=== PATIENT | female | born 1960 | race Caucasian/White ===

== ENCOUNTER 2020-03-07 18:37 | Emergency (ER) | payer OTHER ==
[~2020-03-07] VITALS: Ht 162.6 cm; Wt 53.1 kg
[2020-03-07 19:50] LABS: URINE BILIRUBIN NEGATIVE (Negative); URINE BLOOD TRACE (Negative); URINE CLARITY CLEAR; URINE COLOR YELLOW; URINE GLUCOSE-RANDOM* NEGATIVE (Negative); URINE KETONES 1+ (Negative); URINE LEUKOCYTES-REFLEX NEGATIVE (Negative); URINE NITRITE-REFLEX NEGATIVE (Negative); URINE PROTEIN (DIPSTICK) NEGATIVE (Negative); URINE UROBILINOGEN 0.2 E.U./dl (0.2-1.0)
[2020-03-07 19:52] LABS: MCH 34.7 pg (26.0-34.0); MCHC 34.3 g/dL (28.0-37.0); MCV 101.2 fL (80.0-100.0); PLATELET COUNT 189 thou/uL (150-400); RBC 3.76 mil/uL (4.20-5.00); RDW 15.7 % (10.5-14.5); WBC 4.7 thou/uL (4.0-11.0)
[2020-03-07 20:00] LABS: ANION GAP 16 mmol/L (7-16); BUN 11 mg/dL (7-18); CALCIUM 8.2 mg/dL (8.5-10.1); CHLORIDE 102 mmol/L (98-107); CO2 24 mmol/L (21-32); CREATININE 0.7 mg/dL (0.6-1.0); GLUCOSE 143 mg/dL (74-106); POTASSIUM 3.1 mmol/L (3.5-5.1); SODIUM 142 mmol/L (136-145)
[2020-03-07 20:10] LABS: ALBUMIN 4.6 g/dL (3.4-5.0); SGOT 145 U/L (15-37); SGPT 192 U/L (30-65); TOTAL BILIRUBIN 0.2 mg/dL (0.2-1.0); TOTAL PROTEIN 7.4 g/dL (6.4-8.2); TROPONIN-I <0.06 ng/mL (<0.06)
[2020-03-07 20:22] LABS: ABSOLUTE NEUTROPHILS 2.2 thou/uL (1.4-8.2); ANISOCYTOSIS 1+; MACROCYTES 1+
[2020-03-07 20:23] LABS: LARGE PLATELETS RARE; POLYCHROMASIA OCCASIONAL
[2020-03-07] MEDS ORDERED: POTASSIUM20 PO (21:21)
[2020-03-07 21:40] VITALS: BP 122/85
--- NOTE | 2020-03-09 08:13 | EKG ---
[facility] [place] [address] ELECTROCARDIOGRAM REPORT Name: MICKEY BENITES Room #: DEP [facility]#: [id number] Admission: 03/07/20 Attend Phys: Discharge: 03/07/20 Date of : 56 Report #: [id number] THIS REPORT FOR: cc: Christine Schaffer, Chirstine Katz, Naeem Leal MD [facility] ~ THIS REPORT FOR: //name// [facility] ED Test Date: 2020-03-07 Test Time: 19:52:06 Pat Name: MICKEY BENITES Department: Room: Gender: F Final Inspector Paper: ALFONSO : 1960 Requested By: Epifanio Melendez Order Number: [id number] MD: Naeem Magaña Measurements Intervals [place] Rate: 90 P: 49 TX: 138 QRS: -7 QRSD: 101 T: 28 QT: 368 QTc: 451 Interpretive Statements Sinus rhythm RSR' in V1 or V2, right VCD or RVH No previous ECG available for comparison Electronically Signed On 03-09-2020 8:12:52 CDT by Naeem Magaña [email or web address] <ELECTRONICALLY SIGNED> By: Naeem Magaña MD, FAC 03/09/20811 51 51 Naeem Magaña MD, [facility] /EPI
== END 2020-03-07 21:41 | disposition home or self-care (01) ==
LOC: ER 18:37
PROVIDERS: Nurse Practitioner
DX: E87.6 Hypokalemia (principal); F10.10 Alcohol abuse, uncomplicated; R51 Headache; F17.210 Nicotine dependence, cigarettes, uncomplicated; Z88.2 Allergy status to sulfonamides; Y90.9 Presence of alcohol in blood, level not specified

== ENCOUNTER 2020-07-04 21:45 | Emergency (ER) | payer OTHER ==
[~2020-07-04] VITALS: Ht 160 cm; Wt 53.5 kg
[~2020-07-04 21:45] MED LIST: POTASSIUM20 PO
[2020-07-04 22:34] VITALS: BP 105/75
== END 2020-07-04 22:35 | disposition home or self-care (01) ==
LOC: ER 21:45
DX: I73.9 Peripheral vascular disease, unspecified (principal); F17.200 Nicotine dependence, unspecified, uncomplicated; F17.210 Nicotine dependence, cigarettes, uncomplicated; Z88.2 Allergy status to sulfonamides; Z79.899 Other long term (current) drug therapy

== ENCOUNTER 2020-07-16 09:17 | Emergency (ER) | payer OTHER ==
[~2020-07-16] VITALS: Ht 160 cm; Wt 53.5 kg
[2020-07-16 09:54] LABS: CALCIUM 8.4 mg/dL (8.5-10.1); CREATININE 0.8 mg/dL (0.6-1.0)
[2020-07-16 09:59] LABS: POTASSIUM 2.9 mmol/L (3.5-5.1)
[2020-07-16 12:45] VITALS: BP 119/78
== END 2020-07-16 12:47 | disposition home or self-care (01) ==
LOC: ER 09:17
PROVIDERS: Emergency Medicine
DX: S80.12XA Contusion of left lower leg, initial encounter (principal); S80.11XA Contusion of right lower leg, initial encounter; E86.0 Dehydration; I10 Essential (primary) hypertension; F17.210 Nicotine dependence, cigarettes, uncomplicated; Z88.2 Allergy status to sulfonamides; X58.XXXA Exposure to other specified factors, initial encounter; Y93.89 Activity, other specified; Y92.89 Other specified places as the place of occurrence of the external cause; Y99.8 Other external cause status

== ENCOUNTER 2020-12-05 15:16 | Inpatient (IN) | payer OTHER ==
[~2020-12-05] VITALS: Ht 162.6 cm; Wt 59.9 kg
[2020-12-05 15:17] VITALS: BP 138/98
[2020-12-05] MEDS ORDERED: BUSPIRONE HCL10 MG PO (15:27)
[2020-12-05] MEDS ORDERED: PROTONIX40 M2 PO (15:27)
[2020-12-05] MEDS ORDERED: OLMESARTAN MEDO20 MG (15:28)
[2020-12-05] MEDS ORDERED: K-DUR 20 MEQ T20 MEQ PO (15:29)
[2020-12-05] MEDS ORDERED: FOLIC ACID1 MG PO (15:29)
[2020-12-05 16:03] LABS: ABSOLUTE NEUTROPHILS 5.1 thou/uL (1.4-8.2); BASOPHILS 0.2 % (0.0-2.0); EOSINOPHILS 0.1 % (0.0-3.0); HEMATOCRIT 34.8 % (37.0-47.0); HEMOGLOBIN 11.9 gm/dL (12.0-15.0); LYMPHOCYTES 4.7 % (24.0-44.0); MCH 32.3 pg (26.0-34.0); MCHC 34.1 g/dL (28.0-37.0); MCV 94.6 fL (80.0-100.0); PLATELET COUNT 133 thou/uL (150-400); RBC 3.68 mil/uL (4.20-5.00); RDW 20.3 % (10.5-14.5); URINE BILIRUBIN 1+ (Negative); URINE BLOOD 2+ (Negative); URINE CLARITY CLEAR; URINE COLOR YELLOW; URINE GLUCOSE-RANDOM* NEGATIVE (Negative); URINE KETONES 3+ (Negative); URINE LEUKOCYTES-REFLEX NEGATIVE (Negative); URINE NITRITE-REFLEX NEGATIVE (Negative); URINE PROTEIN (DIPSTICK) 2+ (Negative); URINE SPECIFIC GRAVITY >= 1.030 (1.005-1.035); WBC 5.8 thou/uL (4.0-11.0)
[2020-12-05 16:17] LABS: CALCIUM 10.1 mg/dL (8.5-10.1); CREATININE 0.8 mg/dL (0.6-1.0); POTASSIUM 4.1 mmol/L (3.5-5.1)
[2020-12-05 16:18] LABS: ICTOTEST (BILI CONFIRMATORY) Positive (Negative)
[2020-12-05 16:23] LABS: ALBUMIN 4.2 g/dL (3.4-5.0); MAGNESIUM 1.4 mg/dL (1.8-2.4); PHOSPHORUS 2.3 mg/dL (2.5-4.9); TOTAL PROTEIN 7.3 g/dL (6.4-8.2)
[2020-12-05 16:26] LABS: MUCUS >6 Heavy strn/LPF (None Seen)
[2020-12-05 16:27] LABS: BACTERIA-REFLEX None Seen /HPF (None Seen); CRYSTALS None Seen /LPF (None Seen); HYALINE CASTS 0-3 Few /LPF (None Seen); SQUAMOUS 0-3 Few /LPF (0-3); TRANSITIONAL EPITHEL CELL 4-10 Moderate /LPF (None Seen); URINE RBC 3-10 Few /HPF (NONE SEEN); URINE WBC-REFLEX None Seen /HPF (0-5)
[2020-12-05 16:28] LABS: RENAL EPITHELIAL CELLS 0-3 Few /LPF (None Seen)
[2020-12-05 16:30] LABS: ANISOCYTOSIS 2+
[2020-12-05 22:27] VITALS: BP 121/89
[2020-12-05 22:56] VITALS: BP 121/84
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
[2020-12-06 03:34] VITALS: BP 137/92
[2020-12-06 04:48] LABS: CALCIUM 8.2 mg/dL (8.5-10.1); CREATININE 0.5 mg/dL (0.6-1.0); MAGNESIUM 1.6 mg/dL (1.8-2.4); POTASSIUM 3.3 mmol/L (3.5-5.1)
[2020-12-06 07:44] VITALS: BP 132/97
[2020-12-06 11:09] VITALS: BP 130/94
--- NOTE | 2020-12-06 13:04 | NUR ---
CARE ASSUMED THIS AM, PT ALERT AND ORIENTED X4, COMPLAINS OF SOME NAUSEA AND BUT FEELS BETTER NOW AFTER SOME ICE CHIPS. ON ROOM AIR, NO SIGNS OF DISTRESS NOTED. FREQUEST ASSESSMENT FOR ETOH WITHDRAWAL. SEIZURE AND FALL PRECAUTIONS IN PLACE. UP TO BSC WITH 1 ASSIST DUE TO WEAKNESS AND TREMORS. DENIES ANY NEEDS AT MOMENT. WILL CONTINUE TO MONITOR
[2020-12-06 15:23] VITALS: BP 123/96
[2020-12-06 19:30] VITALS: BP 128/93
--- NOTE | 2020-12-06 22:28 | NUR ---
PT ALERT AND ORIENED X4. VSS AFEBRILE. SR ON MONITOR PRESENTLY. UNLABORED ON RA. DENIED MARINELLI OR ANY PAIN TONIGHT. REINFORCED FALL PRECAUTIONS AND CALL LIGHT USE. NO TREMORS NOTED PRESENTLY. PT IS IMPROVED TONIGHT . LESS ANXIOUS. NO N/V. NO ABD PAIN. NO S/S DISTRESS. WILL CONTINUE TO MONITOR PT FOR CHANGES. BED DOWN CALL LIGHT IN REACH. SIDE RAILS PADDED FOR SZ PRECAUTIONS. BED ALARM IS ON.
[2020-12-07 02:05] LABS: GLYCOHEMOGLOBIN (HGB A1C) 5.2 % (4.8-5.6)
[2020-12-07 03:41] VITALS: BP 146/87
--- NOTE | 2020-12-07 04:03 | NUR ---
PT MILDLY AGITATED AND ANXIOUS. MEDICATED FOR ANXIETY AND LE PAIN/ BACK PAIN. TYLENOL AND CHLORDIAZEPOXIDE GIVEN. REINFORCED FALL PRECAUTIONS.
[2020-12-07 05:13] LABS: ABSOLUTE NEUTROPHILS 1.2 thou/uL (1.4-8.2); BASOPHILS 2.2 % (0.0-2.0); HEMATOCRIT 30.4 % (37.0-47.0); HEMOGLOBIN 10.4 gm/dL (12.0-15.0); LYMPHOCYTES 26.7 % (24.0-44.0); MCH 32.9 pg (26.0-34.0); MCHC 34.1 g/dL (28.0-37.0); MCV 96.4 fL (80.0-100.0); PLATELET COUNT 66 thou/uL (150-400); POLYS 57.1 % (36.0-66.0); RBC 3.15 mil/uL (4.20-5.00); RDW 18.6 % (10.5-14.5); WBC 2.2 thou/uL (4.0-11.0)
[2020-12-07 05:31] LABS: ALBUMIN 3.3 g/dL (3.4-5.0); CALCIUM 7.9 mg/dL (8.5-10.1); CREATININE 0.4 mg/dL (0.6-1.0); DIRECT BILIRUBIN 0.2 mg/dL (<0.1-0.2); MAGNESIUM 1.5 mg/dL (1.8-2.4); PHOSPHORUS 1.3 mg/dL (2.6-4.7); POTASSIUM 3.4 mmol/L (3.5-5.1); TOTAL BILIRUBIN 0.5 mg/dL (0.2-1.0); TOTAL PROTEIN 6.1 g/dL (6.4-8.2)
--- NOTE | 2020-12-07 06:16 | NUR ---
PT PROGRESSING SLOWLY TOWARDS D/C GOALS. VSS. SATS WNL CIWA 4. NO S/S DISTRESS PRESENTLY.
[2020-12-07 07:01] VITALS: BP 134/99
[2020-12-07 09:19] VITALS: BP 148/107
[2020-12-07 15:15] VITALS: BP 145/98
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
--- NOTE | 2020-12-07 17:19 | NUR ---
PT ALERT AND ORIENTED TIMES THREE WITH PERIODS OF CONFUSION. VSS, SR ON TELE, IVF INFUSIN PER ORDER. PT C/O PAIN PRN PAIN MEDICATIONS GIVEN WITH GOOD RELEIF. PT UP TO BSC WITH ASSIST OF ONE. PT TOLERATES MEDS AND MEALS. WILL CONINUE TO MONITOR.
[2020-12-07 20:21] VITALS: BP 144/105
[2020-12-08 00:42] VITALS: BP 137/102
[2020-12-08 04:43] VITALS: BP 153/112
[2020-12-08 05:46] LABS: HEMOGLOBIN 10.6 gm/dL (12.0-15.0); MCH 33.3 pg (26.0-34.0); MCHC 34.2 g/dL (28.0-37.0); MCV 97.2 fL (80.0-100.0); RBC 3.19 mil/uL (4.20-5.00); RDW 19.1 % (10.5-14.5); WBC 2.6 thou/uL (4.0-11.0)
[2020-12-08 05:55] LABS: CALCIUM 8.1 mg/dL (8.5-10.1); CREATININE 0.5 mg/dL (0.6-1.0); POTASSIUM 3.4 mmol/L (3.5-5.1)
--- NOTE | 2020-12-08 06:11 | NUR ---
NO SIGNIFICANT EVENTS DURING THE NIGHT. PT SLEPT MOST OF THE NIGHT. SHE CALLED OUT APPROPRIATELY FOR ASSISTANCE TO THE BSC. GOOD URINE OUTPUT. UNABLE TO GET STOOL SAMPLE, HER BM WAS CONTAMINATED WITH URINE. PRN LORAZEPAM GIVEN PER [facility] SCORE FOR ETOH WITHDRAWAL. PT CONTINUES TO HAVE MILD TREMORS AND SOME ANXIETY. SHE DENIES ANY MORE N/V. SEIZURE PRECAUTIONS IN PLACE. FALL PRECAUTIONS IN PLACE. PROGRESSING SLOWLY TOWARD POC GOALS. WILL GIVE REPORT TO ONCOMING NURSE.
[2020-12-08 07:27] VITALS: BP 136/101
--- NOTE | 2020-12-08 14:00 | NUR ---
RHODA reviewed chart and spoke with nursing and attending physician. Pt is slowly progressing towards goals for discharge. RHODA met with pt at bedside. Discussed discharge disposition: post acute placement v. home with HH. Pt states she wants to go home, as her son will be at home and can assist as needed. RHODA asked pt [facility] Pt states that he will be home when she gets there. RHODA offered to arrange HH for pt. Pt declines stating that if she needs HH after discharge, she will call. RHODA instructed pt to contact her PCP after discharge if she wants HH. Pt will need a walker and states she does not have one or has had one in the past. Options for DME companies provided. No preference voiced. RHODA faxed face sheet to [employer] for review. [facility] accept pt's insurance for DME. RHODA updated attending physician. RHODA is following to assist as needed with discharge planning.
[2020-12-08 15:24] VITALS: BP 136/101
--- NOTE | 2020-12-08 15:25 | NUR ---
DISCONTINUE IV AND TELE. PT WILL BE DISCHAGRED TO HOME VIA PRIVATE VEHICLE AND WITH A SCRIPT FOR A WALKER.
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
== END 2020-12-08 16:51 | disposition home or self-care (01) | DRG 897 ==
LOC: ER 15:16 → EROBS 21:14 → 3W 21:14 → ICU 22:23 → 3W 22:41
PROVIDERS: Emergency Medicine; Hospitalist; Internal Medicine; Nurse Practitioner Family; ADMIT Hospitalist; ATTEND Hospitalist
DX: F10.239 Alcohol dependence with withdrawal, unspecified (principal); E87.2 Acidosis; I10 Essential (primary) hypertension; R73.03 Prediabetes; D69.6 Thrombocytopenia, unspecified; K27.9 Peptic ulcer, site unspecified, unspecified as acute or chronic, without hemorrhage or perforation; Y90.9 Presence of alcohol in blood, level not specified; Z88.2 Allergy status to sulfonamides; Z79.899 Other long term (current) drug therapy
CPT/HCPCS: 10879

== ENCOUNTER 2021-04-10 20:17 | Emergency (ER) | payer OTHER ==
[~2021-04-10] VITALS: Ht 160 cm; Wt 49.9 kg
--- NOTE | ~2021-04-10 | EMS ---
[place] [address] EMS Patient Care Report Name: MICKEY BENITES Room #: REG ELIZA [facility]#: [id number] Admission: 04/10/21 Attend Phys: Discharge: Date of : 56 Report #: [id number] THIS REPORT FOR: //name// Report Transmitted: 04/10/2021 19:54 EMS Care Summary [place], [place]/[facility] Incident [id number] @ 04/10/2021 19:39 Incident Location [address] [place] [address] Patient MICKEY BENITES Female, 61 Years 1960 Patient Address [address] [place] [address] Patient History Alcohol Abuse,Back Pain (Chronic), Patient Allergies Sulfa, Chief Complaint chronic back pain Disposition Transported No Lights/[place] Dispatch Reason Sick Person Transported To [facility] Narrative pt found seated in living room chair, a&o, intoxicated. pt states she has been drinking today and also took edibles @ 1700. she is req transport to [facility] for help w/ her alcoholism and to also be seen for her chronic low back pain. pt ambulatory w/ assist to unit, secured to cot, transport w/o incident. pt to triage, [place] [address] EMS Patient Care Report Name: MICKEY BENITES Room #: REG ELIZA [facility]#: [id number] Admission: 04/10/21 Attend Phys: Discharge: Date of : 56 Report #: [id number] Initial Vitals @20:03P: 110,R: 18,BP: 122/83,Pain: 8/10,GCS: 15,Glucose: 126,SpO2: 96,Revised Trauma: 12, Assessments @19:56MENTAL:No Abnormalities,SKIN:No Abnormalities,HEENT:Head/Face: No Abnormalities,LUNG SOUNDS:ABDOMEN:PELVIS//GI:EXTREMITIES:PULSE:Radial: 2+ Normal,NEURO:Abnormal Gait,Slurred Speech, Impression Overdose - Alcohol Procedures @19:56 ALS Assessment Response: Unchanged @20:00 Stretcher Response: Unchanged Timeline 19:36,Call Received 19:36,Dispatch Notified 19:39,Dispatched 19:39,En Route 19:55,On Scene 19:56,At Patient 19:56,ALS Assessment,Response: Unchanged 20:00,Stretcher,Response: Unchanged 20:03,BP: 122/83 M,PULSE: 110,RR: 18 R,SPO2: 96 Ox,ETCO2: ,B,PAIN: 8,GCS: 15, 20:05,Depart Scene 20:18,At Destination 20:27,Call Closed Disclaimer v1.1 Copyright 2020 [employer] This EMS Care Summary contains data elements from the applicable legal record (which may be displayed differently). It is designed to provide pertinent information for the following purposes: continuity of care, clinical quality, and state data reporting. The complete legal record is available to ED staff and administrators of the receiving hospital in [facility]'s Patient Tracker. All data is provided "as is."
[~2021-04-10 20:17] MED LIST changes: +BUSPIRONE HCL10 MG PO; +FOLIC ACID1 MG PO; +K-DUR 20 MEQ T20 MEQ PO; +OLMESARTAN MEDO20 MG; +PROTONIX40 M2 PO
[2021-04-10 20:20] VITALS: BP 112/84
[2021-04-10 21:14] LABS: URINE BILIRUBIN NEGATIVE (Negative); URINE BLOOD TRACE (Negative); URINE CLARITY CLEAR; URINE COLOR YELLOW; URINE GLUCOSE-RANDOM* NEGATIVE (Negative); URINE KETONES 2+ (Negative); URINE LEUKOCYTES-REFLEX TRACE (Negative); URINE PROTEIN (DIPSTICK) 1+ (Negative); URINE UROBILINOGEN 0.2 E.U./dl (0.2-1.0)
[2021-04-10 21:16] LABS: URINE NITRITE-REFLEX POSITIVE (Negative)
[2021-04-10 21:27] LABS: SQUAMOUS >10 Many /LPF (0-3)
[2021-04-10 21:28] LABS: BACTERIA-REFLEX >30 Many /HPF (None Seen); CASTS None Seen /LPF (None Seen); CRYSTALS None Seen /LPF (None Seen); URINE RBC 1-2 Rare /HPF (NONE SEEN); URINE WBC-REFLEX 6-15 Few /HPF (0-5)
== END 2021-04-10 21:20 | disposition left against medical advice (07) ==
LOC: ER 20:17
PROVIDERS: Nurse Practitioner Family
DX: F10.10 Alcohol abuse, uncomplicated (principal); I10 Essential (primary) hypertension; F12.90 Cannabis use, unspecified, uncomplicated; F32.9 Major depressive disorder, single episode, unspecified; F41.9 Anxiety disorder, unspecified; F17.210 Nicotine dependence, cigarettes, uncomplicated; Z79.891 Long term (current) use of opiate analgesic; Z79.899 Other long term (current) drug therapy; Z88.2 Allergy status to sulfonamides

== ENCOUNTER 2021-06-04 12:54 | Emergency (ER) | payer OTHER ==
[~2021-06-04] VITALS: Ht 160 cm; Wt 54.4 kg
--- NOTE | ~2021-06-04 | EMS ---
[place] [address] EMS Patient Care Report Name: MICKEY BENITES Room #: DEP ELIZA [facility]att#: [id number] Admission: 06/04/21 Attend Phys: Discharge: 06/04/21 Date of : 56 Report #: [id number] THIS REPORT FOR: //name// Report Transmitted: 06/07/2021 14:55 EMS Care Summary [place], [place]/[facility] Incident [id number] @ 06/04/2021 12:00 Incident Location [address] [place] [address] Patient MICKEY BENITES Female, 61 Years 1960 Patient Address [address] [place] [address] Patient History Anxiety,Alcohol Abuse,Back Pain (Chronic), Patient Allergies No known allergies,Sulfa, Patient Medications Unknown, Chief Complaint DEPRESSION DETOX Disposition Transported No Lights/[place] Dispatch Reason Psychiatric Problem/Abnormal Behavior/Suicide Attempt Transported To [facility] Narrative PT FOUND SITTING UP IN CHQIR A/O X3 C/O BEING DEPRESSED. PT REPORTEDLY TOLD HER SON THAT SHE WANTED TO . PT INFORMED EMS THAT SHE WANTED TO BUT DIDN'T WANT TO KILL HERSELF BECAUSE GOD WON'T LET HER. [address] [address] EMS Patient Care Report Name: MICKEY BENITES Room #: DEP [facility] [place]#: [id number] Admission: 06/04/21 Attend Phys: Discharge: 06/04/21 Date of : 56 Report #: [id number] NO CHANGES ENROUTE. Initial Vitals @12:29P: 68,R: 16,BP: 108/74,Pain: 0/10,GCS: 15,Glucose: 105,Revised Trauma: 12, @12:37P: 99,R: 16,BP: 121/87,Pain: 0/10,GCS: 15,Revised Trauma: 12, Assessments @12:27MENTAL:No Abnormalities,SKIN:No Abnormalities,HEENT:Head/Face: No Abnormalities,Eyes: No Abnormalities,Neck/Airway: No Abnormalities,LUNG SOUNDS:General: No Abnormalities,Left Upper: No Abnormalities,Right Upper: No Abnormalities,Left Lower: No Abnormalities,Right Lower: No Abnormalities,ABDOMEN:General: No Abnormalities,Left Upper: No Abnormalities,Right Upper: No Abnormalities,Left Lower: No Abnormalities,Right Lower: No Abnormalities,PELVIS//GI:No Abnormalities,EXTREMITIES:Left Arm: No Abnormalities,Right Arm: No Abnormalities,Left Leg: No Abnormalities,Right Leg: No Abnormalities,PULSE:NEURO:No Abnormalities, Impression Behavioral/psychiatric episode Procedures @12:27 ALS Assessment Response: UnchangedSucceeded Timeline 11:59,Call Received 11:59,Dispatch Notified 12:00,Dispatched 12:00,En Route 12:26,On Scene 12:27,At Patient 12:27,ALS Assessment,Response: UnchangedSucceeded, 12:29,BP: 108/74 M,PULSE: 68,RR: 16 R,SPO2: Ox,ETCO2: ,B,PAIN: 0,GCS: 15, 12:37,BP: 121/87 M,PULSE: 99,RR: 16 R,SPO2: Ox,ETCO2: ,BG: ,PAIN: 0,GCS: 15, 12:40,Depart Scene 12:46,At Destination 13:03,Call Closed Disclaimer v1.1 Copyright 2020 [employer] This EMS Care Summary contains data elements from the applicable legal record (which may be displayed differently). It is designed to provide pertinent information for the following purposes: continuity of care, clinical quality, and state data reporting. The complete legal record is available to ED staff and administrators of the receiving hospital in [employer]'s Patient Tracker. All data [address] [address] EMS Patient Care Report Name: MICKEY BENITES Room #: DEP ELIZA [facility]#: [id number] Admission: 06/04/21 Attend Phys: Discharge: 06/04/21 Date of : 56 Report #: [id number] is provided "as is."
[2021-06-04 12:57] VITALS: BP 99/66
[2021-06-04 13:40] LABS: AMP/METHAMP Negative (Negative); BARBITURATES Negative (Negative); BENZODIAZEPINES Negative (Negative); COCAINE Negative (Negative); METHADONE Negative (Negative); OPIATES Negative (Negative); PCP Negative (Negative)
[2021-06-04 13:52] LABS: ABSOLUTE NEUTROPHILS 2.3 thou/uL (1.4-8.2); BASOPHILS 1.3 % (0.0-2.0); EOSINOPHILS 3.4 % (0.0-3.0); HEMATOCRIT 38.7 % (37.0-47.0); HEMOGLOBIN 13.1 gm/dL (12.0-15.0); LYMPHOCYTES 37.4 % (24.0-44.0); MCH 33.8 pg (26.0-34.0); MCHC 33.8 g/dL (28.0-37.0); MCV 99.8 fL (80.0-100.0); MONOCYTES 11.7 % (1.0-8.0); PLATELET COUNT 192 thou/uL (150-400); POLYS 46.2 % (36.0-66.0); RBC 3.88 mil/uL (4.20-5.00); RDW 15.8 % (10.5-14.5)
[2021-06-04 14:10] LABS: ANION GAP 13 mmol/L (7-16); BUN 12 mg/dL (7-18); CALCIUM 8.6 mg/dL (8.5-10.1); CHLORIDE 104 mmol/L (98-107); CO2 25 mmol/L (21-32); CREATININE 0.5 mg/dL (0.6-1.0); GLUCOSE 94 mg/dL (74-106); POTASSIUM 3.7 mmol/L (3.5-5.1); SODIUM 142 mmol/L (136-145)
[2021-06-04 14:14] LABS: ALBUMIN 3.6 g/dL (3.4-5.0); LIPASE 141 U/L (73-393); SALICYLATE 3.4 mg/dL (2.8-20.0); SGOT 53 U/L (15-37); SGPT 85 U/L (14-59); TOTAL BILIRUBIN 0.5 mg/dL (0.2-1.0); TOTAL PROTEIN 6.3 g/dL (6.4-8.2)
== END 2021-06-04 14:30 | disposition home or self-care (01) ==
LOC: ER 12:54
PROVIDERS: Emergency Medicine
DX: F10.129 Alcohol abuse with intoxication, unspecified (principal); I10 Essential (primary) hypertension; F12.90 Cannabis use, unspecified, uncomplicated; E11.9 Type 2 diabetes mellitus without complications; F10.10 Alcohol abuse, uncomplicated; F17.210 Nicotine dependence, cigarettes, uncomplicated; Z79.899 Other long term (current) drug therapy; Z88.2 Allergy status to sulfonamides